=== PATIENT | female | born 1970 | race Caucasian/White ===

== ENCOUNTER → 2021-07-14 | Outpatient (CLI) | payer BC ==
--- NOTE | 2021-07-14 20:12 | CT ---
EXAMINATION TYPE: CT ChestAbdPelvis w con DATE OF EXAM: 07/14/2021 COMPARISON: Prior CT January 15, 2020 and older studies. HISTORY: obs for mets. hx of breast ca. History of right-sided breast cancer diagnosed 2018. CT DLP: 778.8 mGycm. Automated Exposure Control for Dose Reduction was Utilized. CONTRAST: CT scan of the thorax, abdomen and pelvis is performed with oral and with IV Contrast, patient inject ed with 100 mL of Isovue 300. FINDINGS: LUNGS: Mild underlying emphysematous change redemonstrated. Anterior reticulation and increased opaci ty presumed mild peripheral fibrotic change anterior right mid lung presumed related to prior treatme nt. Mild Linear scarring in left lung base. No new greater than 5 mm nodules or masses. No pleural ef fusion or pneumothorax. MEDIASTINUM: There are no new greater than 1 cm hilar or mediastinal lymph nodes. No cardiomegaly o r pericardial effusion is seen. There is a 4 vessel origin from aortic arch which is normal variant. OTHER: Bilateral subpectoral breast implants are redemonstrated. Some residual scar tissue in the ri ght axilla axial image 12 is redemonstrated. There are now 2 suspicious hyperdense or enhancing lymph nodes at this level 1 measures 8 x 6 mm axial image 12 and second posterior deep or 2 this measures 8 x 8 mm axial image 13 that warrant follow-up. There is also new borderline enlarged 1.2 x 1.0 cm le ft axillary lymph node on axial image 13. LIVER/GB: Contracted gallbladder is now present. Stable prominent right hepatic lobe and mild hepatom egaly. PANCREAS: No significant abnormality is seen. SPLEEN: No significant abnormality is seen. ADRENALS: No significant abnormality is seen. KIDNEYS: Symmetrical visually uptake and excretion without hydronephrosis seen bilaterally. BOWEL: Oral contrast reaches level of the left colon. No suspicious small or large bowel dilatation. Normal-appearing appendix incidentally noted. GENITAL ORGANS: Anteverted uterus. Prominent draining left ovarian vein again seen, cannot exclude pe lvic congestion syndrome. LYMPH NODES: No new greater than 1cm abdominal or pelvic lymph nodes are appreciated. OSSEOUS STRUCTURES: Moderate disc space narrowing L4-L5 level with vacuum disc phenomenon redemonstra catrachito. OTHER: No significant additional abnormality is seen. IMPRESSION: Nonspecific but suspicious new prominent and borderline enlarged bilateral axillary lymph nodes, advise targeted ultrasound evaluation to further evaluate as recurrent malignancy needs to be excluded.
--- NOTE | 2021-07-14 20:19 | MR ---
EXAMINATION TYPE: MR brain wo/w con DATE OF EXAM: 07/14/2021 COMPARISON: NONE HISTORY: Right eye droop, breast cancer, headache. TECHNIQUE: Multiplanar, multisequence images of the brain and brainstem is performed without and with IV contras t, utilizing 7.5 mL intravenous Gadavist . FINDINGS: Diffusion weighted images demonstrate no evidence of a recent infarct or other diffusion ab normality. There is no extra-axial fluid collection or significant white matter signal abnormality. The ventricular system and cisternal spaces are normal in size and appearance. The brain volume is age appropriate. Midline structures demonstrate normal morphology. The craniocervical junction appears within normal limits. Post contrast images demonstrate no abnormal enhancement. The dural venous sinuses appear pa tent. The visualized sinuses are clear and the globes are intact. Patchy fluid signal bilateral masto id air cells. IMPRESSION: No suspicious enhancing masses to suggest metastatic disease to the brain. Mild patchy fl uid signal bilateral mastoid air cells could reflect retained secretions, correlate clinically to exc lude acute mastoiditis.
== END | disposition home or self-care (01) ==
LOC: RADMRIMAIN 15:02 → MERGE 15:02
PROVIDERS: ATTEND Internal Medicine Hematology & Oncology
DX: C50.411 Malignant neoplasm of upper-outer quadrant of right female breast (principal); R93.0 Abnormal findings on diagnostic imaging of skull and head, not elsewhere classified; Z85.3 Personal history of malignant neoplasm of breast
CPT/HCPCS: 71260; 74177; 70553; Q9967; A9585

== ENCOUNTER → 2021-07-16 | Outpatient (CLI) | payer BC ==
--- NOTE | 2021-07-16 15:23 | US ---
EXAMINATION TYPE: US thyroid st tissue head/neck DATE OF EXAM: 07/16/2021 COMPARISON: CT 2 days earlier CLINICAL HISTORY: R59.0 supraclavicular adenopathy. lump felt right supraclavicular area multiple possible lymph nodes right neck, largest = 1.9 x 0.6 x 1.2cm hypoechoic areas noted right supraclavicular area with largest = 2.3cm Abnormal lymph node suspected in the right supraclavicular region correlating with recent CT that toan wed suspicious borderline enlarged lymph nodes in the right axilla. Recurrent breast cancer needs to be excluded. Imaging guided sampling advised. IMPRESSION: As above.
== END | disposition home or self-care (01) ==
LOC: MERGE 14:20 → RADUSWWP 14:30
PROVIDERS: ATTEND Internal Medicine Hematology & Oncology
DX: R59.0 Localized enlarged lymph nodes (principal); Z85.3 Personal history of malignant neoplasm of breast
CPT/HCPCS: 76536

== ENCOUNTER 2021-08-23 08:55 | Day surgery (SDC) | payer BC ==
[2021-08-23] MEDS ORDERED: ALPRAZolam 0.5 MG TAB PO PRN (09:20)
[2021-08-23 09:43] VITALS: TEMP 97.5
[2021-08-23 10:56] VITALS: BP 123/77; PULSE 58; RESP 20
--- NOTE | 2021-08-23 11:56 | US ---
ULTRASOUND GUIDED CORE BIOPSY RIGHT NECK LYMPH NODE: CLINICAL HISTORY: Right neck lymph node FINDINGS: The procedure was explained to the patient. The risks, complications, benefits and alternatives were discussed and any questions were answered. Informed consent was obtained. Patient was placed supin e on the ultrasound table and prepped and draped in the usual sterile fashion. Utilizing a 18 gauge needle, 3 passes were made into the requested right neck lymph node. Patient was stable throughout the procedure. Pathology is pending. All elements of maximal barrier technique were utilized. IMPRESSION: 1. Successful ultrasound guided core biopsy of right neck lymph node.
== END 2021-08-23 10:50 | disposition home or self-care (01) ==
LOC: RADPROMAIN 08:55
PROVIDERS: ATTEND Internal Medicine Hematology & Oncology
DX: C96.9 Malignant neoplasm of lymphoid, hematopoietic and related tissue, unspecified (principal)
CPT/HCPCS: 36415; 38505; 76942; 88305; 88341; 88342

== ENCOUNTER → 2021-09-03 | Outpatient (CLI) | payer BC ==
--- NOTE | 2021-09-06 11:48 | PE ---
Nuclear medicine PET/CT HISTORY: Right breast carcinoma, subsequent Patient received 12 mCi F-18 FDG intravenously and delayed scanning was performed from the skull base to the mid thighs. Localization and attenuation correction CT scan was performed. Correlation to prior nuclear medicine PET/CT 09/15/2018, CT 07/14/2021 Average mediastinal uptake SUV 1.4, average liver uptake SUV 2 chest and neck: Supraclavicular and right cervical adenopathy is present, SUV approximately 4.1 x 2. 8, 3.5, some retropectoral uptake on the right is present, SUV 2.6, right axillary uptake, postop solomon nge noted, SUV only 2, left axillary node shows SUV of only 1.5, internal mammary uptake on the right SUV 1.7. Bilateral breast prostheses are in place. No mediastinal, hilar uptake noted. No evident lung mass. N o pleural pericardial effusion. Some basilar atelectatic changes are suspected. Graph abdomen: There is no evident liver mass or suspicious uptake. No retroperitoneal adenopathy or ascites. Uptake along the bowel is felt likely to be physiologic. Osseous structures show no suspicious uptake. IMPRESSION: There has been development of abnormal uptake along the upper right chest and neck as yoan cribed.
== END | disposition home or self-care (01) ==
LOC: RADPETMAIN 14:23
PROVIDERS: ATTEND Internal Medicine Hematology & Oncology
DX: C50.411 Malignant neoplasm of upper-outer quadrant of right female breast (principal)
CPT/HCPCS: 78815; A9552

== ENCOUNTER → 2022-02-25 | Outpatient (CLI) | payer BC ==
--- NOTE | 2022-02-28 09:19 | PE ---
EXAMINATION TYPE: PET CT fusion skull to thigh DATE OF EXAM: 02/25/2022 COMPARISON: Prior PET/CT September 03, 2021 and older studies HISTORY: Right upper outer quadrant breast cancer. TECHNIQUE: Following the intravenous administration of 9.73 mCi of F-18 FDG, whole body images ar e performed from the skull base to the midthigh. Images are reviewed on the computer in the coronal, axial, and sagittal planes. Reconstructed rotating images are created on independent workstation an d reviewed on the computer. A localization and attenuation correction CT is performed in conjunctio n with the PET scan. Blood glucose level equals 103 SCAN: Subsequent Scan FINDINGS: SKULL BASE AND NECK: No abnormal hypermetabolic uptake in the neck on current study. Resolved abnorm al supraclavicular adenopathy. CHEST, MEDIASTINUM, AND HILAR REGION: Interval resolution of abnormal hypermetabolic uptake correspon ding to matted adenopathy involving levels 1 through 3 lymph nodes in the right axilla. No new areas of abnormal hypermetabolic uptake in the thorax on current study. ABDOMEN AND PELVIS: Normal excretion is redemonstrated. No new areas of abnormal hypermetabolic uptak e. OSSEOUS STRUCTURES: No new areas of abnormal hypermetabolic uptake. OTHER CT: Bilateral breast implants are redemonstrated. Cardiomegaly is again seen. Occasional scattered tiny pelvic phleboliths redemonstrated. IMPRESSION: Complete positive treatment response as detailed above.
== END | disposition home or self-care (01) ==
LOC: RADPETMAIN 12:45
PROVIDERS: ATTEND Internal Medicine Hematology & Oncology
DX: C50.411 Malignant neoplasm of upper-outer quadrant of right female breast (principal)
CPT/HCPCS: 78815; A9552

== ENCOUNTER → 2022-07-21 | Day surgery (SDC) | payer BC ==
[2022-07-19 12:23] VITALS: BMI 25.1
[~2022-07-21] MED LIST: ACETAMINOPHEN TAB 500 MG TAB PO PRN; BUPIVACAIN-EPI 0.25%-1:200,000 30 ML VIAL SQ ONE; DEXAMETHASONE SOD PHOSPHATE 4 MG/ML 1 ML VIAL IV ONE; HEPARIN SODIUM,PORCINE/PF 5,000 UNIT/0.5 ML SYRINGE SQ PRN; HYDROmorphone 0.5 MG/0.5 ML SYRINGE IVP PRN; LACTATED RINGERS 1,000 ML IV SCH; LIDOCAINE 2% INJ 20 MG/ML (2 ML VIAL) ONE; MIDAZOLAM 2 MG/2 ML VIAL ONE; NALOXONE 0.4 MG/ML 1 ML VIAL IV PRN; ONDANSETRON 4 MG/2 ML VIAL IVP ONE; PROPOFOL 10 MG/ML 20 ML VIAL IV ONE; Pre Op ABX Message 1 EACH MISC MISCELLANE ONE; fentaNYL (PF) 50 MCG/ML 2 ML AMP ONE
[2022-07-21 13:20] VITALS: RESP 16
--- NOTE | 2022-07-21 13:40 | P.GSHP ---
History of Present Illness H&P Date: 07/21/22 Chief Complaint: Recurrent breast cancer 51-year-old female known to our service. Patient had a Port-A-Cath placed approximately 5 years ago when she was first diagnosed with breast cancer. She underwent chemotherapy if it is surgery and unfortunately recently had recurren ce in the right cervical lymph node chain. She was started back on palliative chemotherapy. Here today for Port-A-Cath placement. Past Medical History Past Medical History: Cancer, GERD/Reflux, Osteoarthritis (OA) Additional Past Medical History / Comment(s): Migraines, anemia, hx right breast cancer in 2018, 2018, and again in 2022. History of Any Multi-Drug Resistant Organisms: None Reported Past Surgical History: Breast Surgery, Section, Tubal Ligation, Uterine Ablation Additional Past Surgical History / Comment(s): Right breast biopsy, bilateral mastectomy with implants, mediport inserted and then removed. Past Anesthesia/Blood Transfusion Reactions: Motion Sickness Past Psychological History: No Psychological Hx Reported Smoking Status: Current every day smoker Past Alcohol Use History: None Reported Additional Past Alcohol Use History / Comment(s): Smokes 1/2 PPD, started in 1997. Past Drug Use History: None Reported - Past Family History Mother Family Medical History: No Reported History Additional Family Medical History / Comment(s): MATERNAL GRANDMOTHER BILATERAL BREAST CANCER. Brother(s) Family Medical History: Deep Vein Thrombosis (DVT) Medications and Allergies Home Medications Medication Instructions Recorded Confirmed Type Ibuprofen [Motrin] 800 mg PO BID PRN 02/15/18 07/21/22 History Buprenorphine-Nalox 8-2 mg Tab 1 tab SUBLINGUAL TID 07/19/22 07/21/22 History [Suboxone 8-2 mg Tab] Dextroamphetamine/Amphetamine 30 mg PO BID 07/19/22 07/21/22 History [Adderall] Multivitamins, Thera [Multivitamin 1 tab PO DAILY 07/19/22 07/21/22 History (formulary)] Allergies Allergy/AdvReac Type Severity Reaction Status Date / Time No Known Allergies Allergy Verified 07/21/22 12:59 Surgical - Exam Vital Signs Temp Pulse Resp BP Pulse Ox 98.1 F 67 16 122/58 97 07/21/22 12:57 07/21/22 12:57 07/21/22 12:57 07/21/22 12:57 07/21/22 12:57 Physical exam: General: Well-developed, well-nourished HEENT: Normocephalic, sclerae nonicteric, subtle palpable adenopathy sternocleido region Abdomen: Nontender, nondistended Extremities: No edema Neuro: Alert and oriented Chest: Reconstructed breasts bilateral Assessment and Plan (1) Breast cancer, right Narrative/Plan: 51-year-old female with recurrent right-sided breast cancer. We'll proceed with Port-A-Cath placement at this time. She and I discussed right side versus left side and decided to proceed with right-sided catheter placement given the straight nature of the internal jugular vein. Risks of bleeding, infection, DVT, pneumothorax, catheter malfunction, anesthesia related complications were discussed. The patient understands and wishes to proceed. Current Visit: No Status: Acute Code(s): C50.911 - MALIGNANT NEOPLASM OF UNSP SITE OF RIGHT FEMALE BREAST SNOMED Code(s): 873858818
--- NOTE | 2022-07-21 14:30 | P.OP ---
Date of Procedure: 07/21/22 Procedure(s) Performed: PREOPERATIVE DIAGNOSIS: Recurrent breast cancer POSTOPERATIVE DIAGNOSIS: Same PROCEDURE: Port-A-Cath placement with fluoroscopic and ultrasound guidance SURGEON: Shay EBL: Minimal ANESTHESIA: Sedation COMPLICATIONS: None OPERATIVE PROCEDURE: Patient was brought and placed on the operative table in the supine position. The patient was sedated per anesthesia that time. The chest and neck were prepped and draped in usual sterile fashion. The ultrasound probe was used to identify the location of the right internal jugular vein. The skin was localized with lidocaine. The Seldinger needle was advanced into the IJ under ultrasound guidance. The wire was advanced through the needle under fluoroscopic guidance into the superior vena cava. A port pocket was created in the right infraclavicular location. The catheter was tunneled from the wire entrance site to the port pocket. The port was then connected to the catheter. The dilator introducer was threaded over the guidewire. The guidewire and dilator were then removed. The catheter was advanced through the introducer and introducer was then removed. The tip was seen to be in the right atrial junction via fluoroscopy. A picture of the radiograph showing the tip at the radial digital junction was taken. Port was flushed with both saline and a Hep- Lock solution. There was good flow both in and out of the port. The port was sutured in underlying tissues using 3-0 silk sutures. The subcutaneous tissues were reapproximated using 3-0 Vicryl sutures and the skin at both locations using 4-0 Monocryl sutures. Skin glue and sterile dressings then applied. DISPOSITION: Stable to recovery room
[2022-07-21 14:42] VITALS: TEMP 97
--- NOTE | 2022-07-21 15:12 | FL ---
EXAMINATION TYPE: FL guided central line placemt HISTORY: Fluoroscopy time Impression: 1. Fluoroscopy support provided to the referring physician.
[2022-07-21 15:35] VITALS: BP 115/65; PULSE 69
--- NOTE | 2022-07-21 15:41 | XR ---
EXAMINATION TYPE: XR chest 1V portable DATE OF EXAM: 07/21/2022 3:32 PM COMPARISON: Chest radiographs from 04/17/2019 TECHNIQUE: XR chest 1V portable Frontal view of the chest. CLINICAL INDICATION:Female, 51 years old with history of PORT INSERTION; FINDINGS: Lungs/Pleura: There is no evidence of pleural effusion, focal consolidation, or pneumothorax. Pulmonary vascularity: Unremarkable. Heart/mediastinum: Cardiomediastinal silhouette is unremarkable. Musculoskeletal: No acute osseous pathology. Other findings: None Lines/Tubes: Pciqtu-q-[id number] projecting over the right hemithorax with distal tip at the superior vena cava. IMPRESSION: 1. No acute cardiopulmonary disease process. 2. Right chest wall Jlgllo-a-[id number] with tip in the superior vena cava
== END ==
LOC: OR 12:46
PROVIDERS: ATTEND Surgery
DX: C50.911 Malignant neoplasm of unspecified site of right female breast (principal); M19.90 Unspecified osteoarthritis, unspecified site; K21.9 Gastro-esophageal reflux disease without esophagitis; Z85.3 Personal history of malignant neoplasm of breast; Z98.51 Tubal ligation status; Z98.890 Other specified postprocedural states; Z98.891 History of uterine scar from previous surgery; F17.210 Nicotine dependence, cigarettes, uncomplicated; Z79.899 Other long term (current) drug therapy; Z45.2 Encounter for adjustment and management of vascular access device
CPT/HCPCS: 71045; 77001

== ENCOUNTER 2022-12-29 10:44 | Day surgery (SDC) | payer BC ==
[2022-12-27 09:31] VITALS: BMI 25.9
[2022-12-29 11:22] VITALS: BP 111/56; PULSE 73; RESP 16; TEMP 98.4
[2022-12-29] MEDS ORDERED: IOPAMIDOL-300 100ML BTL INJ ONE (12:00)
--- NOTE | 2022-12-29 12:03 | IR ---
Fluoroscopic portogram([facility]). HISTORY: Device malfunction. The patient presented to the CVL with a Duncan needle within the port. Preliminary fluoroscopy demonst rated the catheter to be intact. The DAP is 0.117 . IMPRESSION: 1. No obstruction or extravasation. See above.
== END 2022-12-29 12:05 | disposition home or self-care (01) ==
LOC: CATHCVL 10:44
PROVIDERS: ATTEND Radiology Diagnostic Radiology
DX: T85.618A Breakdown (mechanical) of other specified internal prosthetic devices, implants and grafts, initial encounter (principal); Z87.891 Personal history of nicotine dependence; Z79.899 Other long term (current) drug therapy; Y83.8 Other surgical procedures as the cause of abnormal reaction of the patient, or of later complication, without mention of misadventure at the time of the procedure
CPT/HCPCS: 36598; 81025; Q9967

== ENCOUNTER → 2023-11-01 | Outpatient (CLI) | payer BC ==
--- NOTE | 2023-12-05 15:50 | US ---
Site ID [facility] Patient Wendy Bowman ID [id number] Order # Procedure US RIGHT UPPER EXTREMITY VENOUS DOPPLER EXAMINATION TYPE: US venous doppler duplex UE RT DATE OF EXAM: 11/02/2023 COMPARISON: THIS EXAM WAS READ DURING PACS DOWNTIME, NO PRIORS AVAILABLE. CLINICAL INDICATION: Patient has swelling x 5 months, worse x 1 month. patient has had a port x 2 yea rs. SIDE PERFORMED: Right, Grayscale, color doppler, spectral doppler imaging performed of the deep veins of the upper extremiti es. There is normal flow, compressibility and vascular waveforms. Right Arm: Negative for DVT IMPRESSION: No evidence for DVT in the right upper summary. Shane called with preliminary findings (-)
== END | disposition home or self-care (01) ==
LOC: RADUSWWP 12:00
PROVIDERS: ATTEND Family Medicine
DX: I82.401 Acute embolism and thrombosis of unspecified deep veins of right lower extremity (principal)

== ENCOUNTER 2024-07-04 12:45 | Emergency (ER) | payer BC ==
[2024-07-04 13:03] VITALS: RESP 16
--- NOTE | 2024-07-04 13:24 | ED ---
ENT HPI - General Chief complaint: ENT Stated complaint: Foreign obj in L ear Time Seen by Provider: 07/04/24 13:03 Source: patient, RN notes reviewed Mode of arrival: ambulatory Limitations: no limitations - History of Present Illness Initial comments: This is a 53-year-old female who presents to the emergency department for concerns of a foreign body in her left ear canal. Patient states that at work around 5 AM she lost the rubber tip of her earbud and felt it get stuck in her left ear. States that she tried to get it out but feels like it continued to go deeper into her ear. States that she feels like something is stuck in there and it is making her hearing muffled. - Related Data Home Medications Medication Instructions Recorded Confirmed Ibuprofen [Motrin] 800 mg PO BID PRN 02/15/18 12/27/22 Buprenorphine-Nalox 8-2 mg Tab 1 tab SUBLINGUAL TID 07/19/22 12/27/22 [Suboxone 8-2 mg Tab] Dextroamphetamine/Amphetamine 30 mg PO BID 07/19/22 12/27/22 [Adderall] Multivitamins, Thera [Multivitamin 1 tab PO DAILY 07/19/22 12/27/22 (formulary)] Allergies Allergy/AdvReac Type Severity Reaction Status Date / Time No Known Allergies Allergy Verified 12/27/22 09:18 Review of Systems ROS Statement: Those systems with pertinent positive or pertinent negative responses have been documented in the HPI. ROS Other: All systems not noted in ROS Statement are negative. Past Medical History Past Medical History: Cancer, GERD/Reflux, Osteoarthritis (OA) Additional Past Medical History / Comment(s): Migraines, anemia, hx right breast cancer in 2018, 2019, and again in 2022. History of Any Multi-Drug Resistant Organisms: None Reported Past Surgical History: Breast Surgery, Section, Tubal Ligation, Uterine Ablation Additional Past Surgical History / Comment(s): Right breast biopsy, bilateral mastectomy with implants, mediport inserted, removed, and inserted again Past Anesthesia/Blood Transfusion Reactions: Motion Sickness Past Psychological History: No Psychological Hx Reported Smoking Status: Current every day smoker Past Alcohol Use History: None Reported Past Drug Use History: None Reported - Past Family History Mother Family Medical History: Cancer Additional Family Medical History / Comment(s): MATERNAL GRANDMOTHER BILATERAL BREAST CANCER. Brother(s) Family Medical History: Deep Vein Thrombosis (DVT) General Exam Limitations: no limitations General appearance: alert, in no apparent distress Head exam: Present: atraumatic, normocephalic, normal inspection ENT exam: Present: TM's normal bilaterally, normal external ear exam, other (No foreign body visualized in the bilateral TMs) Respiratory exam: Present: normal lung sounds bilaterally. Absent: respiratory distress, wheezes, rales, rhonchi, stridor Cardiovascular Exam: Present: regular rate, normal rhythm Neurological exam: Present: alert, oriented X3, CN II-XII intact Psychiatric exam: Present: normal affect, normal mood Skin exam: Present: warm, dry, intact, normal color. Absent: rash Course Vital Signs 07/04/24 13:01 Temperature 97.7 F Pulse Rate 89 Respiratory 16 Rate Blood Pressure 157/71 O2 Sat by Pulse 98 Oximetry Medical Decision Making - Medical Decision Making This is a 53-year-old female who presents to the emergency department for concerns of a foreign body in her left ear. Was pt. sent in by a medical professional or institution? @ -No Did you speak to anyone other than the patient for history? @ -No Did you review nursing and triage notes? @ -Yes, and I agree, it is accurate with regards to the patient's symptoms. Were old charts reviewed? @ -No Differential Diagnosis? @ -Foreign body, otitis media, otitis externa, tumor, this is not meant to be an all-inclusive list. EKG interpreted by me (3pts min.)? @ -Not obtained X-rays interpreted by me (1pt min.)? @ -Not obtained CT interpreted by me (1pt min.)? @ -Not obtained U/S interpreted by me (1pt. min.)? @ -Not obtained What testing was considered but not performed? (CT, X-rays, U/S, labs)? Why? @ -None What meds were considered but not given? Why? @ -None Did you discuss the management of the patient with other professionals? @ -No Did you reconcile home meds? @ -No Was smoking cessation discussed for >3mins.? @ -No Was critical care preformed (if so, how long)? @ -No Were there social determinants of health that impacted care today? How? (Homelessness, low income, unemployed, alcoholism, drug addiction, transportation, low edu. Level, literacy, decrease access to med. care, [facility], rehab)? @ -No Was there de-escalation of care discussed even if they declined? (Discuss DNR or withdrawal of care, Hospice)? @ -No What co-morbidities impacted this encounter? (DM, HTN, Smoking, COPD, CAD, Cancer, CVA, Hep., AIDS, mental health diagnosis, sleep apnea, morbid obesity)? @ -None Was patient admitted / discharged? @ -Discharged. On my initial evaluation of the patient I did not visualize any foreign bodies in her left ear. ED attending, Dr. Newton, evaluated the candelaria martell at bedside as well and no foreign bodies were identified. She appeared to have a possible cholesteatoma. We also discussed that if she had something like a piece of skin fall in her ear it can also cause that sensation. Advised she look around her clothing, belongings, and where she has been to see if she can find the tip of the earbud. She was given information for follow-up with ENT as well. Patient discharged home in stable condition. Case discussed with ED attending Dr. Newton. Return precautions reviewed in depth, the patient is instructed to return to the emergency department with any new, worsening, or concerning symptoms. Patient verbalized understanding. Undiagnosed new problem with uncertain prognosis? @ -None Drug Therapy requiring intensive monitoring for toxicity (Heparin, Nitro, Insulin, Cardizem)? @ -None Were any procedures done? @ -None Diagnosis/symptom? @ -Foreign body sensation in left ear Acute, or Chronic, or Acute on Chronic? @ -Acute Uncomplicated (without systemic symptoms) or Complicated (systemic symptoms)? @ -Uncomplicated Side effects of treatment? @ -None Exacerbation, Progression, or Severe Exacerbation] @ -Not applicable Poses a threat to life or bodily function? @ -No Disposition Clinical Impression: Foreign body sensation in left ear canal Disposition: HOME SELF-CARE Additional Instructions: Return to the emergency department with any new, worsening, or concerning symptoms. Look through your clothing, belongings, vehicle, and anywhere you may have been to see if you can find the earbud. If you continue to have this feeling or sensation in your ear, follow-up with the ENT office listed below. Is patient prescribed a controlled substance at d/c from ED?: No Referrals: Chucho Bray MD [Primary Care Provider] - 1-2 days Arvin Sylvester MD [STAFF PHYSICIAN] - 1-2 days Mahendra Rizvi MD [STAFF PHYSICIAN] - 1-2 days Time of Disposition: 13:24
[2024-07-04 13:38] VITALS: BP 149/76; PULSE 84; TEMP 98
== END 2024-07-04 13:38 | disposition home or self-care (01) ==
LOC: EC 12:45
DX: R09.A0 Foreign body sensation, unspecified (principal); F17.200 Nicotine dependence, unspecified, uncomplicated
CPT/HCPCS: 99282